=== PATIENT | female | born 1970 | race Caucasian/White ===

== ENCOUNTER 2019-04-18 07:01 | Outpatient (CLI) | payer OTHER, SELFPAY ==
--- NOTE | 2019-04-18 07:20 | MM_ITS ---
WS: [id number] BILATERAL SCREENING DIGITAL MAMMOGRAM WITH CAD HISTORY: SCREENING COMPARISON: 04/01/2018 Bilateral CC and MLO views submitted. Computer aided detection analyzed. Breast composition: There are scattered areas of fibroglandular density. No suspicious masses, microc alcifications or architectural distortion. Numerous calcifications noted within each breast. Probably skin calcifications which are very benign. MM/[place] [id number] IMPRESSION: BI-RADS: 2-Benign FOLLOW UP: 1 Year Follow-up
== END 2019-04-18 07:02 | disposition home or self-care (01) ==
LOC: RADSHAW 07:05
PROVIDERS: Family Provider Electrodiagnostic Medicine; PCP Registered Nurse; Visit Provider Electrodiagnostic Medicine
DX: Z12.31 Encounter for screening mammogram for malignant neoplasm of breast (principal)
CPT/HCPCS: 77067

== ENCOUNTER → 2019-11-18 17:18 | Outpatient (BNVA) | payer OTHER, SELFPAY | PROVIDERS: Family Provider Electrodiagnostic Medicine; PCP Registered Nurse; Visit Provider Family Medicine | DX: Z20.828 Contact with and (suspected) exposure to other viral communicable diseases (principal) | CPT/HCPCS: 87635 ==

== ENCOUNTER 2020-06-11 07:11 | Outpatient (CLI) | payer OTHER, SELFPAY ==
--- NOTE | 2020-06-11 07:17 | MM_ITS ---
WS: [id number] Bilateral screening digital mammogram, 06/11/2020 Clinical Data: SCREENING Comparison: 04/18/2019, 04/01/2018, 03/21/2017, 02/24/2016, 02/12/2015, 10/12/2009. Findings: The breast parenchymal pattern shows fat replacement. No spiculated masses or clustered calcification s are seen. There are no secondary signs of carcinoma. Numerous small calcifications are seen unchang ed. Impression: 1. Negative bilateral mammogram unchanged. 2. Recommend annual screening mammograms. MM/[place] [id number] BIRADS: 1-Negative FOLLOW UP: 1 Year Follow-up The CAD checkering machine operator was used.
== END 2020-06-11 07:12 | disposition home or self-care (01) ==
LOC: RADSHAW 07:15
PROVIDERS: PCP Registered Nurse; Visit Provider Registered Nurse
DX: Z12.31 Encounter for screening mammogram for malignant neoplasm of breast (principal)
CPT/HCPCS: 77067

== ENCOUNTER 2021-07-21 13:05 | Outpatient (CLI) | payer OTHER, SELFPAY ==
--- NOTE | 2021-07-21 13:26 | MM_ITS ---
WS: [id number] VIEWS: MLO and CC views both breasts. 3D digital tomosynthesis is also included in this exam. Comparison made with prior exam of 02/12/2015, 02/24/2016, 03/21/2017, 04/01/2018, 04/18/2019, and 021.. Findings: There was no sign of mass, architectural distortion or suspicious calcification in either breast. Fa [place]ty MM/[place] [id number] Impression: BI-RADS: 2-Benign FOLLOW-UP: 1 Year Follow-up This mammogram was also analyzed by the Computer Aided Detection System R2 Imag e Tank Furnace Operator.
== END 2021-07-21 13:06 | disposition home or self-care (01) ==
LOC: RAD 13:06
PROVIDERS: PCP Registered Nurse; Visit Provider Registered Nurse
DX: Z12.31 Encounter for screening mammogram for malignant neoplasm of breast (principal)
CPT/HCPCS: 77063; 77067

== ENCOUNTER 2021-08-16 06:36 | Outpatient (CLI) | payer OTHER, SELFPAY ==
--- NOTE | 2021-08-16 07:00 | USCV_ITS ---
Jyoti Zavala Age: 51 Gender: F : 1970 Exam Date: 08/16/2021 06:51 Ordering Phys: Katherine Hinojosa MD ([email or web address]) Technologist: Hugo Thurston Exam Location: [facility] [place] Indication: Hypertension BP: 170 / 110 HR: 84 Rhythm: Sinus Technical Quality: Adequate MEASUREMENTS (Male / Female) Normal Values 2D ECHO LV Diastolic Diameter PLAX 3.1 cm 4.2 - 5.9 / 3.9 - 5.3 cm LV Systolic Diameter PLAX 2.0 cm IVS Diastolic Thickness 2.8 cm 0.6 - 1.0 / 0.6 - 0.9 cm IVS Systolic Thickness 1.1 cm LVPW Diastolic Thickness 0.8 cm 0.6 - 1.0 / 0.6 - 0.9 cm LVPW Systolic Thickness 1.2 cm LVOT Diameter 2.1 cm LV Ejection Fraction 2D Teich 82.3 % LA Diameter 4.0 cm IVC Diameter 1.4 cm M-MODE Aortic Annulus Diameter 4.0 cm LA Ao Ratio MM 1.1 MV E Point Septal Separation 0.6 cm DOPPLER AV Peak Velocity 155.0 cm/s LVOT Peak Velocity 118.0 cm/s AV Area Cont Eq vti 2.8 cm squared AV Area Cont Eq pk 2.6 cm squared MV Area PHT 5.0 cm squared Mitral E to A Ratio 1.0 MV E' Velocity 53.0 cm/s Mitral E to MV E' Ratio 7.9 Mitral E to LV E' Lateral Ratio 7.1 Mitral E to LV E' Septal Ratio 8.9 TR Peak Velocity 127.7 cm/s TR Peak Gradient 6.5 mmHg Right Atrial Pressure 3.0 mmHg Pulmonary Artery Systolic Pressu 9.5 mmHg PV Peak Velocity 106.0 cm/s FINDINGS Left Ventricle Normal left ventricular size, systolic function and wall thickness, with no regional wall motion abnormalities. Left ventricular ejection fraction is estimated at 70 %. Normal diastolic function. Right Ventricle Normal right ventricular size and systolic function. Right ventricular systolic pressure 9.5 mmHg. Right Atrium Normal right atrial size. Left Atrium Normal left atrial size. Mitral Valve Structurally normal mitral valve. No mitral valve stenosis. No mitral valve regurgitation. Aortic Valve Aortic valve not well visualized. No aortic valve stenosis. No aortic valve regurgitation. Tricuspid Valve Structurally normal tricuspid valve. No tricuspid valve stenosis. Trace tricuspid valve regurgitation. Pulmonic Valve Pulmonic valve not well visualized. No significant pulmonary valve regurgitation. Pericardium No pericardial effusion. Aorta Normal size aortic root and proximal ascending aorta. IVC Normal IVC dimension with >50% respiratory change of the inferior vena cava. CONCLUSIONS 1. Normal left ventricular size, systolic function and wall thickness, with no regional wall motion abnormalities. Left ventricular ejection fraction is estimated at 70 %. Normal diastolic function. 2. No significant valvular abnormality. 3. No prior similar studies to compare. Katherine Hinojosa MD (Electronically Signed) Final Date: 17 August 2021 19:37 S
== END 2021-08-16 06:37 | disposition home or self-care (01) ==
LOC: RAD 06:37
PROVIDERS: PCP Registered Nurse; Visit Provider Internal Medicine Cardiovascular Disease
DX: R06.02 Shortness of breath (principal)
CPT/HCPCS: C8929

== ENCOUNTER 2022-05-31 09:59 | Outpatient (CLI) | payer OTHER, SELFPAY ==
--- NOTE | 2022-05-31 10:12 | XR_ITS ---
WS: [email or web address] XR lumbar spine 6V w f/e [id number] REASON FOR EXAM: R LEG PAIN FINDINGS: There are 6 lumbar vertebrae without ribs. The sixth lumbar vertebrae is partially sacralized. For the purposes of this discussion the last disc space will be considered L6/S1. No significant scoliosis. Mild straightening of the upper lordosis of the lumbar spine. No compression deformity or focal vertebral body lesion. Mild narrowing of the L3-L4 disc space with small anterior osteophytes. Significant narrowing of the L4-L5 disc space with endplate sclerosis and moderate osteophytosis. Mild narrowing of the L5-L6 disc space with small anterior osteophytes. Remaining disc spaces are intact and relatively well-preserved. Moderate degenerative changes in the facet joints at L5-S1. No significant listhesis in the neutral position and no significant vertebral body movement with flex ion and extension. XR/XR lumbar spine 6V w f/e [id number] IMPRESSION: Degenerative spondylosis as above.
== END 2022-05-31 10:00 | disposition home or self-care (01) ==
LOC: RAD 10:02
PROVIDERS: PCP Family Medicine; Visit Provider Family Medicine
DX: M47.817 Spondylosis without myelopathy or radiculopathy, lumbosacral region (principal); M25.78 Osteophyte, vertebrae; M79.661 Pain in right lower leg
CPT/HCPCS: 72114

== ENCOUNTER 2022-07-26 07:32 | Outpatient (CLI) | payer OTHER, SELFPAY ==
--- NOTE | 2022-07-26 07:41 | MM_ITS ---
WS: [email or web address] VIEWS: MLO and CC views both breasts. 3D digital tomosynthesis is also included in this exam. Comparison made with prior exam of 02/24/2016, 03/21/2017, 04/01/2018, 04/18/2019, 06/11/2020, 07/21/2021.. Findings: There was no sign of mass, architectural distortion or suspicious calcification in either breast. Th e breasts are almost entirely fatty MM/[place] [id number] Impression: BI-RADS: 2 benign finding. FOLLOW-UP: 1 Year Follow-up This mammogram was also analyzed by the Computer Aided Detection System R2 Imag e Roundhouse Firer/Fireman.
== END 2022-07-26 07:33 | disposition home or self-care (01) ==
PROVIDERS: PCP Family Medicine; Visit Provider Family Medicine
DX: Z12.31 Encounter for screening mammogram for malignant neoplasm of breast (principal)
CPT/HCPCS: 77063; 77067

== ENCOUNTER 2023-07-30 07:25 | Outpatient (CLI) | payer OTHER, SELFPAY ==
--- NOTE | 2023-07-30 07:40 | MM_ITS ---
WS: [id number] SCREENING DIGITAL TOMOSYNTHESIS MAMMOGRAM WITH CAD HISTORY: SCREENING COMPARISON: 07/26/2022, 07/21/2021 Bilateral CC and MLO with tomosynthesis views submitted. Synthetic mammography reviewed. Computer aid ed detection analyzed. Breast composition: There are scattered areas of fibroglandular density. No suspicious masses, microc alcifications or architectural distortion. Numerous benign calcifications reidentified throughout eac h breast. MM/[place] [id number] IMPRESSION: BI-RADS: 2-Benign FOLLOW UP: 1 Year Follow-up
== END 2023-07-30 07:26 | disposition home or self-care (01) ==
LOC: RAD 07:25
PROVIDERS: PCP Family Medicine; Visit Provider Family Medicine
DX: Z12.31 Encounter for screening mammogram for malignant neoplasm of breast (principal); R92.323 Mammographic fibroglandular density, bilateral breasts; R92.1 Mammographic calcification found on diagnostic imaging of breast
CPT/HCPCS: 77063; 77067

== ENCOUNTER 2024-05-12 13:03 | Outpatient (CLI) | payer OTHER, SELFPAY ==
[2024-05-12 13:46] LABS: Basophils % 0.7 %; Eosinophils # 0.2 10^3/uL (0.0-0.8); Eosinophils % 3.2 %; Hematocrit 32.2 % (36-47); Lymphocytes # 2.3 10^3/uL (0.8-4.8); Lymphocytes % 39.1 %; Mean Corpuscular HGB Conc 31.1 g/dL (30-55); Mean Corpuscular Hemoglobin 28.6 pg (27-33); Mean Platelet Volume 11.5 fL (7.4-10.4); Monocytes # 0.7 10^3/uL (0.2-0.9); Monocytes % 12.2 %; Neutrophils # 2.65 10^3/uL (1.8-7.7); Neutrophils % 44.1 %; Nucleated Red Blood Cells % 0 %; Platelet Count 306 10^3/cmm (157-399); Red Cell Distribution Width 15.9 % (12.1-15.1); White Blood Count 5.99 10^3/uL (3.29-11.43)
[2024-05-12 14:09] LABS: Chloride 102 mmol/L (98-107); Sodium 142 mmol/L (136-145)
[2024-05-12 14:40] LABS: Alanine Aminotransferase 16 U/L (0-33); Albumin Level 3.7 g/dL (3.5-5.2); Alkaline Phosphatase 104 U/L (35-105); Aspartate Amino Transferase 34 U/L (0-32); Blood Urea Nitrogen 8 mg/dL (6-20); Calcium 8.9 mg/dL (8.5-10.5); Carbon Dioxide 26 mmol/L (22-29); Globulin 3.1 g/dL (1.3-4.6); Glomerular Filtration Rate 42.5 mL/min (90-130); Glucose 113 mg/dL (65-115); Osmolality Calculated 293 mOsm/kg (285-295); Total Bilirubin 0.5 mg/dL (0.15-1.2); Total Protein 6.8 g/dL (6.6-8.7)
[2024-05-12 14:43] LABS: Anion Gap 16.7 (5-19); C Reactive Protein 5.1 mg/L (0.0-4.9)
[2024-05-12 14:56] LABS: Potassium 2.7 mmol/L (3.5-5.1)
== END 2024-05-12 13:04 | disposition home or self-care (01) ==
PROVIDERS: PCP Family Medicine; Visit Provider Nurse Practitioner Primary Care
DX: L02.211 Cutaneous abscess of abdominal wall (principal)
CPT/HCPCS: 80053; 85025; 86140

== ENCOUNTER 2024-05-13 11:34 | Outpatient (CLI) | payer OTHER, SELFPAY ==
[2024-05-13 12:56] LABS: Alanine Aminotransferase 15 U/L (0-33); Albumin Level 3.7 g/dL (3.5-5.2); Alkaline Phosphatase 107 U/L (35-105); Aspartate Amino Transferase 27 U/L (0-32); Chloride 100 mmol/L (98-107); Sodium 140 mmol/L (136-145)
[2024-05-13 13:15] LABS: Anion Gap 15.7 (5-19); Blood Urea Nitrogen 9 mg/dL (6-20); Calcium 8.9 mg/dL (8.5-10.5); Carbon Dioxide 27 mmol/L (22-29); Globulin 3.3 g/dL (1.3-4.6); Glomerular Filtration Rate 51.6 mL/min (90-130); Total Bilirubin 0.5 mg/dL (0.15-1.2)
[2024-05-13 14:11] LABS: Glucose 114 mg/dL (65-115); Osmolality Calculated 290 mOsm/kg (285-295)
[2024-05-13 16:44] LABS: Potassium 2.7 mmol/L (3.5-5.1)
== END 2024-05-13 11:35 | disposition home or self-care (01) ==
LOC: LAB 11:35
PROVIDERS: Absent Provider Internal Medicine Infectious Disease; PCP Family Medicine; Visit Provider Nurse Practitioner Primary Care
DX: L02.211 Cutaneous abscess of abdominal wall (principal)
CPT/HCPCS: 80053

== ENCOUNTER 2024-08-14 07:55 | Outpatient (CLI) | payer OTHER, SELFPAY ==
--- NOTE | 2024-08-14 07:58 | MM_ITS ---
WS: [id number] Bilateral screening 3D tomosynthesis digital mammogram, 08/14/2024 8:01 AM Clinical Data: SCREENING Comparison: 07/30/2023, 07/26/2022, 07/21/2021, 06/11/2020, 04/18/2019, 04/01/2018, 03/21/2017, 03/26/2015, 02/12/2015, 10/12/2009, 05/14/2008, 05/14/2007. Findings: No spiculated masses or clustered calcifications are seen. There are no secondary signs of carcinoma. There are small benign calcifications in the anterior half of both breasts. MM/MM scr BI tomosynthesis [id number] Impression: Negative bilateral mammogram unchanged. Recommend annual screening mammograms. BIRADS: 1 - Negative. FOLLOW UP: 1 Year Follow-up DENSITY: There are scattered areas of fibroglandular density. The CAD blast furnace checker was used
== END 2024-08-14 07:56 | disposition home or self-care (01) ==
PROVIDERS: PCP Internal Medicine; Visit Provider Internal Medicine
DX: Z12.31 Encounter for screening mammogram for malignant neoplasm of breast (principal)
CPT/HCPCS: 77063; 77067

== ENCOUNTER 2024-08-26 16:40 | Outpatient (CLI) | payer OTHER, SELFPAY | END 2024-08-26 16:41 | disposition home or self-care (01) | PROVIDERS: PCP Internal Medicine; Visit Provider Nurse Practitioner Family | DX: L73.2 Hidradenitis suppurativa (principal) | CPT/HCPCS: 87070; 87075; 87205 ==